=== PATIENT | female | born 1970 | race Caucasian/White ===

== ENCOUNTER 2018-08-04 15:33 | Emergency (ER) | payer SELFPAY ==
[~2018-08-04 15:33] MED LIST: CYCL-394 PO; HYDR-3965 PO; MOT200T PO
--- NOTE | 2018-08-04 17:03 | NUR ---
NIL X 3 CHART GIVEN TO YUSUF WILSON
--- NOTE | 2018-08-04 17:40 | NUR ---
PT CALLED TO TRIAGE X3, NIL, PROVIDER NOTIFIED, NO FURTHER ACTION REQUESTED/REQUIRED.
== END 2018-08-04 17:41 | disposition left against medical advice (07) ==
LOC: ER 15:34
DX: N15.9 Renal tubulo-interstitial disease, unspecified (principal); Z53.21 Procedure and treatment not carried out due to patient leaving prior to being seen by health care provider

== ENCOUNTER 2018-08-26 12:53 | Emergency (ER) | payer MEDICAID ==
[~2018-08-26] VITALS: Ht 157.5 cm; Wt 59.5 kg
[2018-08-26 13:11] VITALS: BP 139/89
[2018-08-26 13:37] LABS: CLARITY,URINE SLIGHTLY CLOUDY (Clear); COLOR,URINE YELLOW (Yellow); GLUCOSE, URINE NEGATIVE (Neg); KETONES,URINE NEGATIVE (Neg); LEUKOCYTE ESTERASE ,URINE SMALL (Neg); NITRITES, URINE NEGATIVE (Neg); OCCULT BLOOD,URINE MODERATE (Neg); PROTEIN,URINE TRACE mg/dl (Neg); UROBILINOGEN,URINE 0.2 E.U/dL (0.2-1.0)
[2018-08-26 13:38] LABS: UA COLLECTION TYPE CLN CATCH MIDSTREAM
[2018-08-26 13:46] LABS: BACTERIA,URINE 1+ /HPF (Neg); MUCUS STRANDS NONE SEEN /LPF (Neg); SQUAMOUS EPITHELIAL CELL,UR FEW /LPF (FEW); WBC CLUMPS,URINE MODERATE /HPF (NEGATIVE); WBC,URINE 50-100 /HPF (0-4)
[2018-08-26] MEDS ORDERED: MONVCR VG (14:34)
[2018-08-26] MEDS ORDERED: FLUC150T PO (14:34)
== END 2018-08-26 14:55 | disposition home or self-care (01) ==
LOC: ER 12:54
DX: R10.2 Pelvic and perineal pain (principal); N89.8 Other specified noninflammatory disorders of vagina; G89.29 Other chronic pain; Z90.710 Acquired absence of both cervix and uterus; Z88.1 Allergy status to other antibiotic agents; Z88.2 Allergy status to sulfonamides
CPT/HCPCS: 81001; 87088; 99283

== ENCOUNTER 2019-03-26 14:52 | Emergency (ER) | payer MEDICAID ==
[~2019-03-26] VITALS: Ht 157.5 cm; Wt 58.6 kg
[2019-03-26 14:57] VITALS: BP 115/73
[2019-03-26] MEDS ORDERED: TETanus/Pertussis (Acell)/Diphther VAC/PF (Tdap-Adult) 0.5ml syringe IM ONE (15:15)
[2019-03-26] MEDS ORDERED: HYDROcodone/acetaminophen 5mg/325mg tablet PO ONE (15:15)
[2019-03-26] MEDS ORDERED: LIDOcaine 1% w/epiNEPHrine 1:200,000 30ml vial IM ONE (15:35)
[2019-03-26] MEDS ORDERED: ACET-3067 PO (15:48)
[2019-03-26] MEDS ORDERED: CEPH500C5 PO (15:48)
== END 2019-03-26 16:02 | disposition home or self-care (01) ==
LOC: ER 14:52
DX: S61.432A Puncture wound without foreign body of left hand, initial encounter (principal); G89.29 Other chronic pain; Z90.710 Acquired absence of both cervix and uterus; Z98.890 Other specified postprocedural states; Z88.2 Allergy status to sulfonamides; Z88.1 Allergy status to other antibiotic agents; Z79.899 Other long term (current) drug therapy; W18.39XA Other fall on same level, initial encounter; Y93.K1 Activity, walking an animal; Y92.488 Other paved roadways as the place of occurrence of the external cause; Y99.8 Other external cause status
CPT/HCPCS: 73130; 90471; 96372; 99283

== ENCOUNTER 2020-12-23 10:32 | Emergency (ER) | payer MEDICAID ==
[~2020-12-23] VITALS: Ht 154.9 cm; Wt 56.8 kg
[2020-12-23] MEDS ORDERED: TETanus/Pertussis (Acell)/Diphther VAC/PF (Tdap-Adult) 0.5ml syringe IMVAC ONE (12:40)
[2020-12-23] MEDS ORDERED: bacitracin 15gm ointment TP ONE (12:40)
[2020-12-23] MEDS ORDERED: DOXY150T5 PO (12:50)
[2020-12-23] MEDS ORDERED: CLIN300C70 PO (12:50)
[2020-12-23] MEDS ORDERED: CYCL-1 PO (12:50)
[2020-12-23] MEDS ORDERED: ketorolac tromethamine 15mg/ml inj. IM ONE (13:30)
[2020-12-23 14:14] VITALS: BP 126/84
== END 2020-12-23 14:05 | disposition home or self-care (01) ==
LOC: ER 10:33
DX: S81.831A Puncture wound without foreign body, right lower leg, initial encounter (principal); M54.2 Cervicalgia; G89.29 Other chronic pain; Z90.710 Acquired absence of both cervix and uterus; Z98.890 Other specified postprocedural states; Z88.2 Allergy status to sulfonamides; Z88.1 Allergy status to other antibiotic agents; Z79.2 Long term (current) use of antibiotics; Z79.899 Other long term (current) drug therapy; W54.0XXA Bitten by dog, initial encounter; Y93.89 Activity, other specified; Y92.89 Other specified places as the place of occurrence of the external cause; Y99.8 Other external cause status
CPT/HCPCS: 72040; 90715; 99283

== ENCOUNTER 2024-04-28 13:34 | Emergency (ER) | payer MEDICAID ==
[~2024-04-28] VITALS: Ht 157.5 cm; Wt 51.3 kg
[~2024-04-28 13:34] MED LIST changes: +CYCL-1 PO
[2024-04-28 13:41] VITALS: BP 146/78; PULSE 97; RESP 14; O2SAT 98
[2024-04-28 15:04] VITALS: TEMP 97.6
== END 2024-04-28 15:06 | disposition home or self-care (01) ==
LOC: ER 13:34
DX: M25.532 Pain in left wrist (principal); Z88.0 Allergy status to penicillin; Z88.2 Allergy status to sulfonamides; Z88.5 Allergy status to narcotic agent; Z88.6 Allergy status to analgesic agent; Z90.710 Acquired absence of both cervix and uterus
CPT/HCPCS: 29125; 73110; 99284